=== PATIENT | female | born 1965 | race American Indian/Alaskan Native ===

== ENCOUNTER 2016-08-30 10:47 | Emergency (ER) | payer SELFPAY ==
--- NOTE | 2016-08-30 13:13 | Emergency Department Report ---
Chief Complaint: High BP Stated Complaint: LEG AND BACK PAIN/BP MED REFILL Time Seen by Provider: 08/30/16 13:13 - HPI History of Present Illness: Patient here complaining of chronic back pain that is radiating down her right leg. She says she has bulging disks in her lumbar spine. She says she's been taking pain medication but it's worse when weather changes. She is also complaining the elevated blood pressure and she was taking lisinopril but she's been out of her medication for 2-3 months. Patient does not have her primary care physician. She is complaining her head is feeling funny and she is has dizziness on and off. Reports pain to back and right leg at 7 out of 10. Denies any fever or chills. Denies any urinary burning frequency or urgency. - ROS Review of Systems: all Systems are negative unless stated in HPI above. - Exam Vital Signs: Vital Signs 08/30/16 12:48 Temperature 98.1 F Pulse Rate 66 Respiratory 18 Rate Blood Pressure 178/118 O2 Sat by Pulse 98 Oximetry Physical Exam: Gen: This is a 51-year-old female well-nourished well-developed in no acute distress. Lungs: Clear to auscultate bilaterally, no rhonchi wheezes or rales. CV: S1, S2. Regular rate and rhythm.BP is 178/118 MSE screening note: Focused history and physical exam performed. Due to findings the following was ordered:see mdm ED Medical Decision Making - Medical Decision Making Medical decision making: Patient seen by provider in triage area. Appropriate protocol activated and patient to main ED to be seen by physician. ED Disposition for MSE Condition: Stable
[2016-08-30 14:15] LABS: Basophils % (Auto) 0.6 % (0.0-1.8); Eosinophils % (Auto) 2.1 % (0.0-4.3); Hematocrit 40.5 % (30.3-42.9); Hemoglobin 13.4 gm/dl (10.1-14.3); Mean Corpuscular HGB Conc 33 % (30-34); Mean Corpuscular Hemoglobin 29 pg (28-32); Mean Corpuscular Volume 89 fl (79-97); Platelet Count 297 K/mm3 (140-440); Red Blood Count 4.57 M/mm3 (3.65-5.03); Red Cell Distribution Width 14.1 % (13.2-15.2); White Blood Count 4.3 K/mm3 (4.5-11.0)
[2016-08-30 14:32] LABS: BUN/Creatinine Ratio 8.88; Blood Urea Nitrogen 8 mg/dL (7-17); Calcium 8.8 mg/dL (8.4-10.2); Carbon Dioxide 24 mmol/L (22-30); Chloride 102.4 mmol/L (98-107); Glucose 88 mg/dL (65-100); Potassium 3.5 mmol/L (3.6-5.0); Sodium 139 mmol/L (137-145)
[2016-08-30 14:36] LABS: Anion Gap 16 mmol/L
[2016-08-30 16:18] LABS: Bilirubin,Urine NEG (Negative); Blood,Urine NEG (Negative); Ketones,Urine NEG (Negative); Leukocyte Esterase,Urine NEG (Negative); Mucus,Urine FEW /HPF; Nitrite,Urine NEG (Negative); Protein,Urine <15 mg/dL mg/dL (Negative); Urobilinogen,Urine < 2.0 mg/dL (<2.0)
[2016-08-30] MEDS ORDERED: TORADOL IM ONE (21:17)
[2016-08-30] MEDS ORDERED: CATAPRES PO ONE (21:20)
--- NOTE | 2016-08-30 21:56 | Emergency Department Report ---
HPI - General Chief Complaint: High BP Time Seen by Provider: 08/30/16 13:13 - HPI HPI: The patient is a 51-year-old female with a history of hypertension and on and off low back pain who presents for evaluation of back pain. The patient reports back pain since awakening this morning at 7:30 AM, constant since onset , not out of 10 in severity, sharp in quality, concentrating to the lower back, exacerbated with bending over or movement of the lower back. She states that her back pain is consistent with recurrence of previous back pain. The patient denies recent trauma to the back, fall, fever, chills, night sweats, saddle anesthesia, paresthesias, numbness or tingling in the legs, leg weakness, urine or bowel incontinence or retention, difficulty ambulating, or other focal neurological deficits. ED Past Medical Hx - Past Medical History Hx Hypertension: Yes - Surgical History Past Surgical History?: Yes Additional Surgical History: x3 - Social History Smoking Status: Current Every Day Smoker Substance Use Type: None - Medications Home Medications: Home Medications Medication Instructions Recorded Confirmed Last Taken Type HYDROcodone/APAP 7.5-325 [[place] 1 each PO Q8HR PRN #10 tablet 08/30/16 Unknown Rx 7.5-325 mg TAB] Lisinopril [Zestril TAB] 5 mg PO QDAY #31 tablet 08/30/16 Unknown Rx ED Review of Systems ROS: Stated complaint: LEG AND BACK PAIN/BP MED REFILL Other details as noted in HPI Constitutional: denies: fever ENT: denies: throat or neck pain Respiratory: denies: cough, shortness of breath Cardiovascular: denies: chest pain Endocrine: denies unexplained weight loss or gain Gastrointestinal: denies: abdominal pain, nausea Genitourinary: denies: dysuria Musculoskeletal: reports back pain Skin: denies: rash Neurological: denies: headache Hematological/Lymphatic: denies: easy bleeding or easy bruising Psych: denies sadness or hopelessness Physical Exam - Physical Exam Vital Signs: Vital Signs 08/30/16 08/30/16 08/30/16 12:48 16:29 19:23 Temperature 98.1 F 98.4 F Pulse Rate 66 63 Respiratory 18 18 Rate Blood Pressure 178/118 Blood Pressure 155/86 [Left] O2 Sat by Pulse 98 97 100 Oximetry 01/08/30/16 08/30/16 19:44 20:00 20:15 Temperature 98.3 F Pulse Rate 61 57 L 68 Respiratory 14 18 10 L Rate Blood Pressure 185/103 181/101 Blood Pressure 184/99 [Left] O2 Sat by Pulse 100 99 100 Oximetry 08/30/16 08/30/16 08/30/16 20:33 21:01 21:30 Temperature Pulse Rate 60 65 65 Respiratory 16 18 Rate Blood Pressure 192/107 209/114 209/114 Blood Pressure [Left] O2 Sat by Pulse 99 100 Oximetry Physical Exam: General: well-nourished, well-developed, no acute distress Head: Normocephalic, atraumatic Eyes: normal sclera ENT: Mucous membranes are pink and moist Neck: trachea midline, neck supple, No neck stiffness, no cervical adenopathy Respiratory: Breath sounds equal bilaterally, no wheezing, rales, or rhonchi Cardio: S1 and S2 present, no murmurs, rubs, gallops, capillary refill is brisk Abdomen: Normoactive bowel sounds, soft abdomen, no tenderness Chest WALL/Back: Tenderness to palpation present to bilateral lower lumbar paraspinal musculature, normal active range of motion at the hip intact, no spinous step-off or obvious deformity, ipsi-lateral and contralateral straight leg raise tests are negative. On extremity testing, compartments are soft and pliable, no obvious gross motor strength deficit, 5+ motor strength, including extension of the great toe bilaterally, no muscular atrophy, spasticity, fasciculations, or clonus, no obvious gross sensation deficit including web space between 1st and 2nd toes, reflexes 2+ & symmetric on DTR testing at the knee and ankle joints, distal pulses intact. Musc: No pitting edema Skin: No rash Neuro: no facial drooping, normal speech Psych: Normal affect ED Course Vital Signs 08/30/16 08/30/16 08/30/16 12:48 16:29 19:23 Temperature 98.1 F 98.4 F Pulse Rate 66 63 Respiratory 18 18 Rate Blood Pressure 178/118 Blood Pressure 155/86 [Left] O2 Sat by Pulse 98 97 100 Oximetry 08/30/16 08/30/16 08/30/16 19:44 20:00 20:15 Temperature 98.3 F Pulse Rate 61 57 L 68 Respiratory 14 18 10 L Rate Blood Pressure 185/103 181/101 Blood Pressure 184/99 [Left] O2 Sat by Pulse 100 99 100 Oximetry 08/30/16 08/30/16 08/30/16 20:33 21:01 21:30 Temperature Pulse Rate 60 65 65 Respiratory 16 18 Rate Blood Pressure 192/107 209/114 209/114 Blood Pressure [Left] O2 Sat by Pulse 99 100 Oximetry ED Medical Decision Making - Lab Data Result diagrams: 08/30/16 14:04 08/30/16 14:04 - Medical Decision Making The patient was seen and examined by myself. The patient is placed on a gambling monitor and continuous pulse ox. On initial evaluation, the patient was found to be in no distress. No findings on exam concerning for cauda equina syndrome, spinal stenosis, or epidural abscess . As the patient has no midline tenderness on exam, no neuro deficits, and no findings concerning for emergent etiology of their back pain, imaging will not be obtained at this time. The patient is given an IM dose of Toradol for her back pain. She is given a tablet of clonidine for her elevated blood pressure. On reexamination the patient's blood pressure was found to decrease outside of range concerning for hypertensive emergency. The patient states that her pain is significantly improved, and she is stable for discharge with outpatient follow-up. The patient is given follow-up and return instructions. The patient expressed understanding and agreed with the plan. The patient is discharged in stable condition. Critical care attestation.: If time is entered above; I have spent that time in minutes in the direct care of this critically ill patient, excluding procedure time. ED Disposition Clinical Impression: Acute bilateral low back pain without sciatica, Asymptomatic hypertensive urgency Disposition: DISCHARGED TO HOME OR SELFCARE Is pt being admited?: No Does the pt Need Aspirin: No Condition: Stable Instructions: Chronic Hypertension (ED), Acute Low Back Pain (ED) Referrals: PRIMARY CARE, [Primary Care Provider] - 3-5 Days Time of Disposition: 21:59
[2016-08-30 23:30] VITALS: BP 134/83
== END 2016-08-30 23:31 | disposition home or self-care (01) ==
LOC: ED 10:47
DX: M54.5 Low back pain (principal); I10 Essential (primary) hypertension; F17.200 Nicotine dependence, unspecified, uncomplicated
CPT/HCPCS: 36415; 80048; 81001; 81025; 85025; 96372; 99284; J1885

== ENCOUNTER 2021-02-19 10:11 | Outpatient (CLI) | payer MEDICARE ==
--- NOTE | 2021-02-19 11:06 | Mammography Report ---
DEXA BONE DENSITY SCAN INDICATION / CLINICAL INFORMATION: OSTEOPOROSIS SCREENING. 56 years Female COMPARISON: None available. LUMBAR SPINE, L1-L4: - Bone mineral density (BMD) = 1.032 g/cm2. - T-score = -1.1 - Z-score = 0.1 Change (%) since most recent prior (if available): None available. LEFT HIP, NECK : - Bone mineral density (BMD) = 0.774 g/cm2. - T-score = -1.2 - Z-score = -0.5 Change (%) since most recent prior (if available): None available. IMPRESSION: 1. WHO Classification: Osteopenia. Fracture Risk: Increased. Note: 10-Year Fracture Risk (FRAX) not reported. This DEXA unit lacks FRAX functionality. BMD Reporting Guidelines (ISCD, 2015) BMD Reporting in Postmenopausal Women and in Men Age 50 and Older - T-scores are preferred. - The WHO densitometric classification is applicable. BMD Reporting in Females Prior to Menopause and in Males Younger Than Age 50 - Z-scores, not T-scores, are preferred. This is particularly important in children. - A Z-score of -2.0 or lower is defined as below the expected range for age, and a Z-score above -2.0 is within the expected range for age. - Osteoporosis cannot be diagnosed in men under age 50 on the basis of BMD alone. - The WHO diagnostic criteria may be applied to women in the menopausal transition. http://www.iscd.org/official-positions/2580-mdns-loedhclq-positions-adult/ Signer Name: Sudhir Tejada MD Signed: 02/19/2021 11:01 AM Workstation Name: [id number]
== END 2021-02-19 10:12 | disposition home or self-care (01) ==
LOC: SPVWC 10:11
PROVIDERS: ATTEND Internal Medicine Hematology & Oncology
DX: Z13.820 Encounter for screening for osteoporosis (principal); M85.88 Other specified disorders of bone density and structure, other site
CPT/HCPCS: 77080